=== PATIENT | male | born 1930 | race Caucasian/White ===

== ENCOUNTER 2016-10-27 10:12 | Emergency (ER) | payer OTHER, MEDICARE ==
[~2016-10-27] VITALS: Ht 157.5 cm; Wt 88.5 kg
[2016-10-27 10:12] VITALS: BP_SYST 153
--- NOTE | 2016-10-27 10:20 | NUR ---
ER at bedside examining patient.
--- NOTE | 2016-10-27 10:20 | NUR ---
Placed in room 1 . Placed on cardiac monitor technician, blood pressure machine and pulse oximeter. To gown for exam. Side rails up.
--- NOTE | 2016-10-27 10:30 | NUR ---
food tray served,pt fed himself.tolerated well.
--- NOTE | 2016-10-27 11:00 | NUR ---
transported to [facility] department via [facility].
--- NOTE | 2016-10-27 11:11 | NUR ---
returned back from [facility], no change of condition
[2016-10-27 11:20] LABS: BASOPHILS % (AUTO) 0.4 % (0.0-2.0); EOSINOPHILS # (AUTO) 0.2 K/uL (0.0-0.4); EOSINOPHILS % (AUTO) 1.8 % (0.0-4.0); HEMATOCRIT 42.2 % (36-54); HEMOGLOBIN 13.9 g/dL (14.0-18.0); LYMPHOCYTES # (AUTO) 1.3 K/uL (1.0-5.5); LYMPHOCYTES % (AUTO) 14.8 % (20.5-51.5); MEAN CORPUSCULAR HEMOGLOBIN 31 pg (27-31); MEAN CORPUSCULAR HGB CONC 33 % (32-36); MEAN CORPUSCULAR VOLUME 93 fL (79.0-98.0); MONOCYTES # (AUTO) 0.8 K/uL (0.0-1.0); NEUTROPHILS # (AUTO) 6.3 K/uL (1.8-7.7); PLATELET COUNT (AUTO) 132 K/uL (130-430); RED BLOOD CELL COUNT(AUTO) 4.55 MIL/uL (4.2-6.2); RED CELL DISTRIBUTION WIDTH 13.9 % (9.0-15.0); WHITE BLOOD COUNT (AUTO) 8.6 K/uL (4.8-10.8)
[2016-10-27 11:27] LABS: ANION GAP 4 (5-15); CALCIUM 9.2 mg/dL (8.4-11.0); CHLORIDE 104 mmol/L (98-107); CREATININE 1.66 mg/dL (0.55-1.30); GLUCOSE 89 mg/dL (70-99); POTASSIUM 4.2 mmol/L (3.5-5.1); SODIUM SERUM 143 mmol/L (136-145); UREA NITROGEN, BLOOD 33 mg/dL (8-21)
[2016-10-27 11:33] LABS: INR 1.1 (0.80-1.20); PROTHROMBIN TIME 11.6 SECS (9.5-12.5)
[2016-10-27 11:44] LABS: ALANINE AMINOTRANSFERASE 17 U/L (12-78); ALCOHOL, BLOOD < 3 mg/dL (<10); ASPARTATE AMINOTRANSFERASE 17 U/L (10-37); FREE T4 (FREE THYROXINE) 0.8 ng/dL (0.6-1.6); TOTAL BILIRUBIN 1.8 mg/dL (0.0-1.0); TOTAL PROTEIN, SERUM 7.5 g/dL (6.4-8.3)
--- NOTE | 2016-10-27 11:49 | NUR ---
Patient given written and verbal discharge instructions and verbalizes understanding. ER MD discussed with patient the results and treatment provided. Patient in stable condition. ID arm band removed. IV catheter removed intact and dressing applied, no active bleeding. Rx of 0 given. Patient educated on pain management and to follow up with PMD. Pain Scale 0. Opportunity for questions provided and answered.
[2016-10-27 12:02] VITALS: BP_SYST 140
== END 2016-10-27 11:49 | disposition home or self-care (01) ==
LOC: SED 10:12
DX: E11.649 Type 2 diabetes mellitus with hypoglycemia without coma (principal); I50.9 Heart failure, unspecified; I48.91 Unspecified atrial fibrillation; E78.00 Pure hypercholesterolemia, unspecified
CPT/HCPCS: 36415; 71010; 74000; 80053; 82140; 82962; 83605; 83880; 84439; 84484; 85025; 85610; 87040; 93005; 99285; G0482